=== PATIENT | male | born 1945 | race Asian ===

== ENCOUNTER → 2019-07-11 | Outpatient (CLI) | payer OTHER ==
[~2019-07-11] VITALS: Ht 172.7 cm; Wt 66.7 kg
[~2019-07-11] MED LIST: ASPIR 8181 MG PO; FORTAMET500 MG PO; GLUCOSAMINE HC500 MG PO; HYDROCHLOROTHIA25 M1 PO; LIPITOR10 MG PO; LOSARTAN POTAS100 MG PO; MULTIVITAMINS PO; NORVASC5 MG PO
--- NOTE | 2019-07-12 14:06 | PATH ---
[facility] [address] [place] [address] PATHOLOGY RPT PROCEDURE Name: BOOM HAYES LAMB Room #: REG [facility].#: [id number] Admission: 07/11/19 Date of : 49 Discharge: Report #: [id number] Path Case #: [id number] [facility] Accession Number: [id number] . 01 Material submitted: . PART A: small bowel - SMALL BOWEL BIOPSY R/O CELIAC PART B: stomach - BIOPSY GASTRITIS R/O H. PYLORI PART C: hepatic flexure - POLYP AT HEPATIC FLEXURE . 01 Clinical history: . Pre-op diagnosis: Anemia Post-op diagnosis: Gastritis, colon polyp, diverticulosis, small hemorrhoids A. R/O celiac B. R/O H. pylori . 02 Diagnosis: A. Small bowel, biopsy: - No pathologic diagnosis. - Normal villous architecture. . B. Stomach, biopsy: - Chronic superficial gastritis, mild. - No evidence of Helicobacter pylori on immunoperoxidase stain. . C. Colon, hepatic flexure, biopsy: - Adenomatous polyp. . (SKM:lele; 07/12/2019) [facility] 07/12/2019 1035 Local . 02 Electronically signed: . Sundeep Warren MD, Pathologist NPI- [id number] . 01 Gross description: . A. The specimen is received in formalin, labeled "Boom Hayes, small bowel biopsy, R/O celiac". Received are four segments of pale cosme soft tissue ranging in size from 0.2 to 0.6 cm in maximum dimensions. The specimen is submitted entirely in cassette A1. . B. The specimen is received in formalin, labeled "Boom Hayes, biopsy gastritis, R/O H. pylori". Received are three segments of pale cosme soft tissue ranging in size from 0.5 to 0.6 cm in maximum dimensions. The specimen is submitted entirely in cassette B1. . C. The specimen is received in formalin, labeled "Boom Hayes, polyp at [address] [address] PATHOLOGY RPT PROCEDURE Name: BOOM HAYES Room #: REG [facility].#: [id number] Admission: 07/11/19 Date of : 49 Discharge: Report #: [id number] Path Case #: [id number] hepatic flexure". Received is a segment of pale cosme soft tissue measuring 0.4 cm in maximum dimensions. The specimen is submitted entirely in cassette C1. (CAA; 07/11/2019) QAC/QAC 07/11/2019 1625 Local . 02 Pathologist provided ICD-10: K29.30, D12.3 . 02 CPT . 969130, 929490, 783589 Specimen Comment: A courtesy copy of this report has been sent to Specimen Comment: [phone], . Specimen Comment: Report sent to / DR RIVERS Performed at: [address] [id number] MD Andrea Hayes MD Phone: [phone] Performed at: [address] [id number] MD Madisyn Coates MD Phone: [phone]
--- NOTE | 2019-07-13 11:25 | P ---
[facility] [place] [address] [place] [address] PROCEDURE REPORT Name: BOOM APARICIO LAMB Room #: REG [facility]#: [id number] Admission: 07/11/19 Attend Phys: Reuben Castellon MD Discharge: Date of : 49 Report #: [id number] THIS REPORT FOR: //name// CC: Reuben Gann DATE OF SERVICE: 07/11/2019 BRIEF HISTORY: The patient is a 74-year-old male who was recently found to be anemic and referred for GI evaluation. PREOPERATIVE DIAGNOSIS: Anemia. POSTOPERATIVE DIAGNOSIS: Mild antral gastritis. MEDICATIONS: Deep sedation with propofol per Anesthesia. SPECIMENS: 1. Small bowel biopsies to rule out celiac disease. 2. Biopsies of gastritis. ESTIMATED BLOOD LOSS: 3 mL. PROCEDURE: EGD with biopsy. FINDINGS: Prior to propofol sedation, procedure of upper endoscopy was discussed with the patient as well as potential risks and its complications. He indicates he understands and desires to proceed. DESCRIPTION OF PROCEDURE: With the patient in left lateral decubitus position, the Olympus video endoscope was inserted in the cervical esophagus under direct vision without difficulty. Examination of this organ through its entire length revealed normal esophageal mucosa down to the squamocolumnar junction. The squamocolumnar junction was inspected and noted to be unremarkable. No evidence of esophagitis or ulcers. No bleeding lesions were seen. A significant hiatus hernia was not seen. The scope was advanced in the stomach, was examined on end view as well as retroflexed views. There was a pattern of diffuse gastritis, primarily in the antrum, but no ulcers, erosions, or bleeding lesions were seen. Biopsies were obtained. Upon retroflexion, no mass lesions were seen in the proximal stomach. No bleeding lesions were seen. Vascular ectasias were not seen. Pylorus, duodenal bulb, and postbulbar duodenal sweep were inspected and noted to be unremarkable. At that point, the scope was slowly withdrawn and careful circumferential views confirmed the above findings. The patient tolerated the procedure well. [address] [address] PROCEDURE REPORT Name: BOOM APARICIO [facility] [id number] Admission: 07/11/19 Attend Phys: Reuben Castellon MD Discharge: Date of : 49 Report #: [id number] CONDITION OF THE PATIENT UPON DISCHARGE: Following procedure, the patient drowsy and prepared for colonoscopy. INSTRUCTIONS TO THE PATIENT AND FAMILY AT THE TIME OF DISCHARGE: I do not see any bleeding lesions nor do I see a source of blood loss. Follow up on biopsies and proceed with colonoscopy. <ELECTRONICALLY SIGNED> By: Reuben Castellon MD 07/13/19 1125 1025 1402 Reuben Castellon MD /nt
--- NOTE | 2019-07-13 11:25 | P ---
[facility] [address] [place] [address] PROCEDURE REPORT Name: BOOM APARICIO LAMB Room #: REG [facility]#: [id number] Admission: 07/11/19 Attend Phys: Reuben Castellon MD Discharge: Date of : 49 Report #: [id number] THIS REPORT FOR: //name// CC: Reuben Gann DATE OF SERVICE: 07/11/2019 COLONOSCOPY REPORT BRIEF HISTORY: The patient is a 74-year-old male with recent findings of anemia. PREOPERATIVE DIAGNOSIS: Anemia. POSTOPERATIVE DIAGNOSES: 1. Diminutive polyp, hepatic flexure. 2. Few scattered colonic diverticula. 3. Small internal hemorrhoids. MEDICATIONS: Deep sedation with propofol per anesthesia. SPECIMENS: Polyp from hepatic flexure. ESTIMATED BLOOD LOSS: 3 mL. PROCEDURE: Colonoscopy to cecum and terminal ileum with biopsy. FINDINGS: Prior to propofol sedation, the procedure of colonoscopy was discussed with the patient as well as potential risks and its complications. He indicates he understands and desires to proceed. DESCRIPTION OF PROCEDURE: With the patient in left lateral decubitus position, digital examination was completed, which revealed no abnormalities. Subsequently, the Olympus video colonoscope was introduced in the rectum, advanced under direct vision to the cecum. Done with minimal difficulty. The cecum was identified by the ileocecal valve and the appendiceal orifice. I was able to visualize the distal segment of terminal ileum, which was unremarkable. At that point, the scope was slowly withdrawn and careful circumferential views were obtained. Upon slow withdrawal of the scope, the prep was good. The mucosa was within normal limits, normal vascular pattern, normal light reflex. No abnormalities were noted until the hepatic flexure was reached and a diminutive polyp was seen and removed with biopsy forceps. The scope was further withdrawn and no additional neoplastic lesions were seen. In addition, no bleeding lesions were seen during this examination. [facility] [address] [place] [address] PROCEDURE REPORT Name: BOOM APARICIO Room #: REG [facility].#: [id number] Admission: 07/11/19 Attend Phys: Reuben Castellon MD Discharge: Date of : 49 Report #: [id number] malformations were not seen. Also, an occasional scattered diverticulum was seen. There was no endoscopic evidence of diverticulitis. The scope was withdrawn in the rectum. Upon retroflexion, small hemorrhoids were seen. Scope was withdrawn. The patient tolerated the procedure well. CONDITION OF THE PATIENT UPON DISCHARGE: Following procedure, the patient drowsy, aroused, conversant and will be discharged home when fully ambulatory. INSTRUCTIONS TO THE PATIENT AND FAMILY AT THE TIME OF DISCHARGE: We will follow up on the pathology of the polyp. If the polyp is an adenoma, he should return in 5 years; if it is hyperplastic polyp, then 10 years would be indicated. As far as anemia, I do not see any evidence of bleeding or blood loss and lesions. He should follow up with Dr. Roman Gann. If there remains concern about anemia, an M2 capsule study could be considered at a later date. <ELECTRONICALLY SIGNED> By: Reuben Castellon MD 07/13/19 1125 1053 1434 Reuben Castellon MD /nt
== END | disposition home or self-care (01) ==
LOC: GI 08:29
DX: D64.9 Anemia, unspecified (principal); D12.3 Benign neoplasm of transverse colon; K29.50 Unspecified chronic gastritis without bleeding; K57.30 Diverticulosis of large intestine without perforation or abscess without bleeding; K64.8 Other hemorrhoids; I10 Essential (primary) hypertension; E78.00 Pure hypercholesterolemia, unspecified; E11.9 Type 2 diabetes mellitus without complications; M19.90 Unspecified osteoarthritis, unspecified site; Z79.82 Long term (current) use of aspirin; Z79.899 Other long term (current) drug therapy; Z79.84 Long term (current) use of oral hypoglycemic drugs
CPT/HCPCS: 62110; 62900

== ENCOUNTER → 2019-10-22 | Outpatient (CLI) | payer OTHER | END | disposition home or self-care (01) | LOC: GI 06:33 | DX: D64.9 Anemia, unspecified (principal); I10 Essential (primary) hypertension; E11.9 Type 2 diabetes mellitus without complications; E78.00 Pure hypercholesterolemia, unspecified; M19.90 Unspecified osteoarthritis, unspecified site; Z98.890 Other specified postprocedural states; Z79.899 Other long term (current) drug therapy; Z98.41 Cataract extraction status, right eye; Z98.42 Cataract extraction status, left eye ==